=== PATIENT | female | born 1995 | race Caucasian/White ===

== ENCOUNTER 2024-04-28 08:06 | Day surgery (SDC) | payer OTHER, SELFPAY ==
[2024-04-28] VITALS (8 sets, daily range): BP systolic 91–116; BP diastolic 58–74; PULSE 64–86; RESP 16; TEMP 36.3–36.7; O2SAT 97–100; BMI 24.0
--- NOTE | 2024-04-28 08:19 | HP.PCM_ITS ---
HPI - General General Date of Admission: 04/28/24 Date of Service: 04/28/24 Chief Complaint: dysphagia HPI Narrative NARA MILLER, is a 28 F who presents to the office today for establishment with [facility]. Pt has a PMHx of hypothyroidism and UC. On interview with pt she tells me she was diagnosed with UC at age 9 and underwent her first colonoscopy at 9 yo. Since then she has been treating her symptoms with OTC supplements as her mother did not allow her to be treated with prescriptions. She had a flare at age 15 at underwent another colonoscopy but was still not treated with medical therapy. She is now at a point where she would like to get her disease under control. She has flares for two days at a time with abdominal cramping and diarrhea with 3-4 episode per day. During flares she will also feel very fatigued. She eats a very health conscious diet with no sugar, diary or red meat. SHe denies heartburn, n/v, melena or constipation. [facility] Medical History (Updated 04/24/24 @ 08:21 by Raine Moreau) Thyroid disease Non-smoker Muscle strain Intermittent chest pain Localized enlarged lymph nodes Foreign body sensation in throat Spotting between menses Thyroid enlarged Hypothyroidism UTI (urinary tract infection) Breast lump Home Medications ?Medication ?Instructions ?Recorded ?Last Taken ?Type elderberry fruit 200 mg capsule mg PO 02/12/24 Unknown History levothyroxine 50 mcg tablet 50 mcg PO QDAY 02/12/24 Unknown History multivitamin 1 tab PO QDAY 02/12/24 Unknown History psyllium husk 0.52 gram capsule 0.52 g PO ONCE 02/12/24 Unknown History (Fiber (psyllium husk)) Bacillus coagulans 800 million cell PO 02/14/24 Unknown History cell tablet coenzyme [id number] 32 pkg PO 02/14/24 Unknown History mg-0.4 mg-250 mcg oral combo pack digestive enzymes 1 cap PO QDAY 02/14/24 Unknown History lactase 3,000 unit tablet (Lactaid) 3,000 unit PO ONCE 02/14/24 Unknown History Allergy/AdvReac Type Severity Reaction Status Date / Time No Known Allergies Allergy Verified 04/24/24 08:16 Family History (Updated 02/14/24 @ 12:57 by Pamela El) Grandmother Breast cancer Diabetes Grandfather Diabetes Mother Thyroid disorder Father Cancer Surgical History (Updated 04/24/24 @ 08:21 by Raine Moreau) History of wisdom tooth extraction History of tonsillectomy History of colonoscopy Social History (Updated 02/14/24 @ 12:55 by Pamela El) Smoking Status: Never smoker alcohol intake: never substance use type: does not use what type of physical activity do you participate in: weight training and other details: cardio frequency: 3-4 times per week ROS Constitutional Constitutional: Denies fatigue, fever(s), poor appetite, weight gain or weight loss Gastrointestinal Gastrointestinal: Denies belching, bloating, change in bowel habits, change in stool character, chewing difficulty, coffee ground emesis, constipation, cramping, diarrhea, dyspepsia, dysphagia, early satiety, excessive flatus, fecal incontinence, heartburn, hematemesis, hematochezia, hemorrhoids, loose stools, melena, nausea, odynophagia, rectal bleeding, tenesmus, vomiting or weight changes Physical Exam Const alert, oriented x3, no apparent distress and healthy appearing General Appearance: cooperative GI normal to inspection, nondistended, normoactive bowel sounds, soft to palpation, non-tender and non-distended Percussion: normal to percussion Rectal Exam: deferred Assessment & Plan Assessment/Plan (1) Ulcerative colitis: PLAN: Plan (1) Ulcerative colitis: Status: Acute Plan: Pt is a 28 yo female with hx of UC here today to establish care. SHe was diagnosed with UC at age 9 but has never had true treatment of her condition as her mother did not allow it. She was treated with OTC supplements. She is at the point where she wants to feel better and start a prescription therapy if indicated. I will order IBD blood work and stool testing as it is unclear if this has ever been done. Her last colonoscopy was over 10 years ago so she will be scheduled for another one now. I gave her a handout regarding anti inflamma tory foods. I discussed step therapy vs step down therapy for IBD. SHe is agreeable to plan. -Colonoscoipy -IBD panel -Stool testing -Anti inflammatory diet paper given -f/u in 3 months Orders: Orders Allergen, Food Profile 14 Today K51.90 - Ulcerative colitis, unspecified, without complications TONI Comprehensive Panel Today K51.90 - Ulcerative colitis, unspecified, without complications ANCA Today K5 - Ulcerative colitis, unspecified, without complications Calprotectin, Stool Today K5 - Ulcerative colitis, unspecified, without complications CBC W/Diff, Automated Today K5 - Ulcerative colitis, unspecified, without complications CDIFF (PCR) Today K5 - Ulcerative colitis, unspecified, without complications Celiac Disease Profile Today K5 - Ulcerative colitis, unspecified, without complications Comprehensive Metabolic Profil Today - Ulcerative colitis, unspecified, without complications ELBRON + Protein Elect, Serum Today - Ulcerative colitis, unspecified, without complications IBD Expanded Profile Today - Ulcerative colitis, unspecified, without complications Giardia Lamblia, Stool EIA Today - Ulcerative colitis, unspecified, without complications Free T3 Today K5 - Ulcerative colitis, unspecified, without complications Erythrocyte Sed Rate Today - Ulcerative colitis, unspecified, without complications ENTERIC PATHOGEN PANEL STOOL Today K5 - Ulcerative colitis, unspecified, without complications, K58.9 - Irritable bowel syndrome, unspecified CRP Today K5 - Ulcerative colitis, unspecified, without complications Immunoglobulins G/A/M/E Today K5 - Ulcerative colitis, unspecified, without complications LDH Today - Ulcerative colitis, unspecified, without complications Ova and Parasites [id number] Today K5 - Ulcerative colitis, unspecified, without complications, K58.9 - Irritable bowel syndrome, unspecified Pancreatic Elastase, Fecal Today - Ulcerative colitis, unspecified, without complications Stool Lactoferrin/WBC Today K5 - Ulcerative colitis, unspecified, without complications, K58.9 - Irritable bowel syndrome, unspecified T4 Free Direct Today - Ulcerative colitis, unspecified, without complications Thyroid Stim Hormone (TSH) Today K5 - Ulcerative colitis, unspecified, without complications I have examined the patient and the H&P has been reviewed. There are no clinical changes since date of exam.
--- NOTE | 2024-04-28 08:22 | PRE.ANES_ITS ---
ASA Classification* ASA Classification ASA Classification: 2 Assessment & Plan Anesthesia* Anesthesia Assessment Anesthesia Assessment: Discussed sedation and/or anesthesia options, risks, benefits, and alternatives with patient/parents/legal guardian/POA. Questions invited. The patient/parents/legal guardian/POA seems to understand and agrees to proceed with anesthesia plan. Reviewed the physical assessment, medical history, allergy history and patient home medications list prior to surgery/procedure/anesthetic and documented any changes. Performed airway and anesthesia risk assessments. Anesthesia Type Anesthesia Type: MAC Anesthesia Focused Assessment* Airway Assessment Mouth opens: >3 cm Mallampati Score: II Focused Labs Anesthesia Preop lab: CBC CHEMISTRY COAG Pre-Assessment Diagnosis/Proposed Procedure Planned Operative Procedure(s): CSCOPE Anesthesia History Anesthesia History - relationship specialist: Anesthesia History - relationship specialist Hx Hospitalization No 04/24/24 08:18 Any Problems With Anesthesia No 04/24/24 08:18 Cholinesterase deficiency No 04/24/24 08:18 You/Your Family Experience No 04/24/24 08:18 fever (hyperthermia) with Relationship Recent Exposure to Contagious Disease Does patient have nerve No 04/24/24 08:18 stimulator Patient instructed to have device shut off --Does patient have Pacemaker or ICD? When Was Last Pacemaker Check QUESTION #4 FULL TEXT: You/Your Family Experience fever (hyperthermia) with Anesthesia Last Oral Intake Last Oral intake: Last Oral Intake NPO since Meds taken in AM with sips of water? Meds patient instructed to take am of surgery PONV PONV - relationship specialist: PONV - relationship specialist Female Yes 04/24/24 08:18 HX of Motion Sickness No 04/24/24 08:18 HX of N/V After Surgery No 04/24/24 08:18 Non-Smoker Yes 04/24/24 08:18 Duration of Surgery greater No 04/24/24 08:18 than 60 minutes Number of Risk Factors 2 04/24/24 08:18 PONV Score Moderate Risk 04/24/24 08:18 Respiratory Assessment Respiratory Assessment - relationship specialist: Respiratory Tract Infection Hx - relationship specialist Hx Respiratory Tract Infection No 04/24/24 08:18 STOP Sleep Apnea STOP Sleep Apnea - relationship specialist: STOP Sleep Apnea - relationship specialist Hx Hypertension No 04/24/24 08:18 Hx Sleep Apnea No 04/24/24 08:18 CPAP BIPAP Do you snore loudly (louder No 04/24/24 08:18 than talking or can be heard Do you often feel tired/ No 04/24/24 08:18 fatigued/ sleepy during daytime? Has anyone observed you stop No 04/24/24 08:18 breathing during sleep? STOP Results Negative 04/24/24 08:18 QUESTION #5 FULL TEXT : Do you snore loudly (louder than talking or can be heard through closed doors)? Tobacco Use History Tobacco Use History - relationship specialist: Tobacco Use History - relationship specialist Tobacco Use Smoking Status Never smoker 04/24/24 08:18 Hx Tobacco Use No 04/24/24 08:18 Years Smoking Packs Smoked per Day Smoking Cessation Date was within the last 15 years Hx Smoking Cessation Date Hx Smoking Cessation Counseling Hematologic Medial History Hematologic Hx - relationship specialist: Hematologic Medical Hx - conductor/brakeman Hx of Blood Transfusion No 04/24/24 08:18 Hx of Transfusion in last 3 No 04/24/24 08:18 Months Date of Last Transfusion (if within last 3 months) Ever experience any problems No 04/24/24 08:18 with transfusion(s)? Specify any problems Hx of Preganancy in last 3 N/A 04/24/24 08:18 Months Nurse Filling Out Transfusion NBUCHER 04/24/24 08:18 & Questions: Date: 04/24/24 04/24/24 08:18 Time: 08:19 04/24/24 08:18 Patient unable to answer at this time (ie. confused, unrespo /Reproduction History /Reproductive History - relationship specialist: /Reproductive Hx- relationship specialist Hx Now No 04/24/24 08:18 Gestational Age (in weeks): EDC: Hx Hx Para Hx Section SAB No 04/24/24 08:18 PFSH Medical History Thyroid disease Non-smoker Muscle strain Intermittent chest pain Localized enlarged lymph nodes Foreign body sensation in throat Spotting between menses Thyroid enlarged Hypothyroidism UTI (urinary tract infection) Breast lump Home Medications ?Medication ?Instructions ?Recorded ?Last Taken ?Type elderberry fruit 200 mg capsule mg PO 02/12/24 Unknown History levothyroxine 50 mcg tablet 50 mcg PO QDAY 02/12/24 Unknown History multivitamin 1 tab PO QDAY 02/12/24 Unknown History psyllium husk 0.52 gram capsule 0.52 g PO ONCE 02/12/24 Unknown History (Fiber (psyllium husk)) Bacillus coagulans 800 million cell PO 02/14/24 Unknown History cell tablet coenzyme [id number] 32 pkg PO 02/14/24 Unknown History mg-0.4 mg-250 mcg oral combo pack digestive enzymes 1 cap PO QDAY 02/14/24 Unknown History lactase 3,000 unit tablet (Lactaid) 3,000 unit PO ONCE 02/14/24 Unknown History Allergy/AdvReac Type Severity Reaction Status Date / Time No Known Allergies Allergy Verified 04/24/24 08:16 Family History Grandmother Breast cancer Diabetes Grandfather Diabetes Mother Thyroid disorder Father Cancer Surgical History History of wisdom tooth extraction History of tonsillectomy History of colonoscopy Social History Smoking Status: Never smoker alcohol intake: never substance use type: does not use what type of physical activity do you participate in: weight training and other details: cardio frequency: 3-4 times per week Review of Systems (Anesthesia) ROS Narrative System reviewed and no additional complaints, except as documented.
[2024-04-28 08:45] LABS: Internal QC Validated? YES +Cl - CLEAR BKGD; Pregnancy, Urine Negative Negative
--- NOTE | 2024-04-28 09:15 | COLBX_PTH ---
PATIENT: NARA MILLER #:[id number] LOC: EN U#:[id number] AGE/SX: 28/F ROOM: RE04/28/[address]: Dr. Don Olson DO : 1995 BED: DIS: 04/28/2024 SPEC #: [id number] RECD: 04/28/24 12:46 STATUS: RUIZ REJuana #: [id number] ZEENAT: 04/28/24 09:[address]: Don Olson DEPT: SURGICAL PATHOLOGY RECD BY: Kenyetta Gray ENTERED: 04/28/24 14:15 SP TYPE: COLON BX OTHR DR: Dr. Surinder Caicedo MD Tissues: A - Ileum, NOS B - COLON BIOPSY Procedures: Surgery Specimen Level IV HEADER OPERATION: colonoscopy with biopsy PRE-OP DIAGNOSIS: Ulcerative colitis TISSUE SUBMITTED: A. Terminal ileum, B. Random colon MICROSCOPIC DIAGNOSIS A. Terminal ileum, biopsy: Fragments of small intestinal mucosa, no pathologic diagnosis. B. Random colon, biopsy: Fragments of colonic mucosa, no pathologic diagnosis. 04/29/2024 MICROSCOPIC DESCRIPTION Slides are reviewed. GROSS DESCRIPTION A. Received is one container labeled with the patient name and designated terminal ileum. The specimen consists of multiple irregular fragments of light bailey soft tissue that in aggregate measure 1 x 0.2 x 0.1 cm. The specimen is totally submitted in one cassette. B. Received is one container labeled with the patient name and designated random colon. The specimen consists of multiple irregular fragments of light bailey soft tissue that in aggregate measure 1.5 x 0.2 x 0.1 cm. The specimen is totally submitted in one cassette. /MS:chelle 04/28/24 TC:4 CPT:05046g6
--- NOTE | 2024-04-28 09:44 | PCM.POST.ANE ---
Anesthesia: Postop Eval I Current Vital Signs Temperature: 97.4 F Pulse Rate: 81 Blood Pressure: 92/70 Respiratory Rate: 16 Pulse Ox: 98 Oxygen Delivery Method: Room Air Assessment Airway patent: Yes Spontaneous unlabored respirations: Yes Mental status: Asleep nausea: No Vomiting: No Anesthesia Complication: No Fluid Hydration Crystalloid volume administer (ml): 40 Total IV fluid infused: 40 Progress Note Anesthesia document: Postop Eval 1 completed: Yes
--- NOTE | 2024-04-28 09:45 | OP.COLON_ITS ---
Patient Name: Opal Metcalf Procedure Date: 04/28/2024 9:17 AM Date of : 1995 Age: 28 Procedure: Colonoscopy Indications: Chronic ulcerative proctosigmoiditis Providers: Don Olson DO Referring MD: Surinder Caicedo Md Medicines: Monitored Anesthesia Care Patient Profile: This is a 28 year old female. Refer to note in patient chart for documentation of history and physical. Last Colonoscopy: several years ago. Complications: No immediate complications. Procedure: Pre-Anesthesia Assessment: - Prior to the procedure, a History and Physical was performed, and patient medications and allergies were reviewed. The patient is competent. The risks and benefits of the procedure and the sedation options and risks were discussed with the patient. All questions were answered and informed consent was obtained. Patient identification and proposed procedure were verified by the physician in the pre-procedure area. Mental Status Examination: alert and oriented. Airway Examination: normal oropharyngeal airway and neck mobility. Respiratory Examination: clear to auscultation. CV Examination: normal. Prophylactic Antibiotics: The patient does not require prophylactic antibiotics. Prior Anticoagulants: The patient has taken no anticoagulant or antiplatelet agents except for NSAID medication. ASA Grade Assessment: II - A patient with mild systemic disease. After reviewing the risks and benefits, the patient was deemed in satisfactory condition to undergo the procedure. The anesthesia plan was to use monitored anesthesia care (MAC). Immediately prior to administration of medications, the patient was re-assessed for adequacy to receive sedatives. The heart rate, respiratory rate, oxygen saturations, blood pressure, adequacy of pulmonary ventilation, and response to care were monitored throughout the procedure. The physical status of the patient was re-assessed after the procedure. After I obtained informed consent, the scope was passed under direct vision. Throughout the procedure, the patient's blood pressure, pulse, and oxygen saturations were monitored continuously. The pediatric colonoscope was introduced through the anus and advanced to the terminal ileum. The colonoscopy was performed without difficulty. The patient tolerated the procedure well. The quality of the bowel preparation was adequate. The terminal ileum, ileocecal valve, appendiceal orifice, and rectum were photographed. Scope In: 9:24:03 AM Scope Withdrawal Time 0 hours 7 minutes 4 seconds Scope Out: 9:37:28 AM Total Procedure Duration Time 0 hours 13 minutes 25 seconds Findings: The digital rectal exam findings include decreased sphincter tone. Inflammation was found as patches surrounded by normal mucosa in the recto-sigmoid colon and in the sigmoid colon. The rectum, the descending colon, the splenic flexure, the transverse colon, the hepatic flexure, the ascending colon and the cecum were spared. The inflammation was mild in severity, and when compared to previous examinations, the findings are in remission. Biopsies were taken with a cold forceps for histology. Verification of patient identification for the specimen was done. Estimated blood loss was minimal. The eden-terminal ileum appeared normal. Biopsies were taken with a cold forceps for histology. Verification of patient identification for the specimen was done. Estimated blood loss was minimal. Retroflexion was not performed because of poor rectal tone and small rectum. Impression: - Decreased sphincter tone found on digital rectal exam. - Colitis. Inflammation was found in the recto-sigmoid colon and in the sigmoid colon. This was mild in severity, in remission compared to previous examinations. Biopsied. - The examined portion of the ileum was normal. Biopsied. Recommendation: - Discharge patient to home. - Resume previous diet. - Continue present medications. - Await pathology results. - Repeat colonoscopy in 3 years for surveillance. Procedure Code(s): --- Professional --- 84539, Colonoscopy, flexible; with biopsy, single or multiple CPT copyright 2021 [employer]. All rights reserved. The codes documented in this report are preliminary and upon sheriff sergeant review may be revised to meet current compliance requirements. Don Olson DO 04/28/2024 9:45:20 AM This report has been signed electronically. Number of Addenda: 0 Note Initiated On: 04/28/2024 9:17 AM
--- NOTE | 2024-04-28 09:46 | OP.CCLET_ITS ---
04/28/2024 Surinder Caicedo Md Re : Colonoscopy procedure for Opal Metcalf Dear Sascha This procedure was performed on Sunday, April 28, 2024. My impressions and recommendations are as follows: Impressions : - Decreased sphincter tone found on digital rectal exam. - Colitis. Inflammation was found in the recto-sigmoid colon and in the sigmoid colon. This was mild in severity, in remission compared to previous examinations. Biopsied. - The examined portion of the ileum was normal. Biopsied. Recommendations : - Discharge patient to home. - Resume previous diet. - Continue present medications. - Await pathology results. - Repeat colonoscopy in 3 years for surveillance. My findings are described in the full procedure note, which is enclosed. If I can be of further assistance, please feel free to contact me at . Sincerely, Don Olson, 04/28/2024 9:45:20 AM This report has been signed electronically.
--- NOTE | 2024-04-28 14:53 | PCM.POSTANE2 ---
Anesthesia Postop Eval I Sum Postop Eval Completion status Anesthesia document: Postop Eval 1 completed: Yes Anesthesia Postop Eval I Summary Anesthesia Postop Eval I Summary: Anesthesia Postop Eval I: Assessment Summary Airway patent Yes 04/28/24 09:45 [email or web address] Spontaneous unlabored Yes 04/28/24 09:45 [email or web address] respirations Mental status Asleep 04/28/24 09:45 [email or web address] nausea No 04/28/24 09:45 [email or web address] Vomiting No 04/28/24 09:45 [email or web address] Anesthesia Postop Eval I: Fluid Summary Crystalloid volume administer 40 04/28/24 09:45 [email or web address] (ml) Colloids volume administered ( ml) Blood Product volume administered (ml) Total IV fluid infused 40 04/28/24 09:45 [email or web address] Anesthesia Postop Eval I: Summary Notes Anesthesia Complication No 04/28/24 09:45 [email or web address] Anesthesia Complication Comment: Post-operative progress note Anesthesia: Postop Eval II Evaluation Mental status: Awake and Calm Pain Level: 0 nausea: No Vomiting: No Complications Anesthesia Complication: No
== END 2024-04-28 10:27 | disposition home or self-care (01) ==
LOC: EN 08:08 → AC 08:09
PROVIDERS: Anesthesiology; PCP Family Medicine; Referring Provider Family Medicine; Visit Provider Internal Medicine Gastroenterology
PROC: 0DJD8ZZ Inspection of Lower Intestinal Tract, Via Natural or Artificial Opening Endoscopic (ICD-10-PCS; CPT 45378; principal; 2024-04-28 09:10)
DX: K51.30 Ulcerative (chronic) rectosigmoiditis without complications (principal); E03.9 Hypothyroidism, unspecified
CPT/HCPCS: 45380; 81025; 88305; A4216; J2405